=== PATIENT | female | born 1950 | race African-American/Black ===

== ENCOUNTER → 2017-02-26 | Outpatient (CLI) | payer MEDICARE, BC | END | disposition home or self-care (01) | LOC: CFH 11:44 | PROVIDERS: ATTEND Internal Medicine | DX: N20.0 Calculus of kidney (principal); N98.9 Complication associated with artificial fertilization, unspecified; E11.65 Type 2 diabetes mellitus with hyperglycemia; I10 Essential (primary) hypertension; K21.9 Gastro-esophageal reflux disease without esophagitis; J44.0 Chronic obstructive pulmonary disease with (acute) lower respiratory infection; C50.011 Malignant neoplasm of nipple and areola, right female breast; E78.1 Pure hyperglyceridemia; F41.9 Anxiety disorder, unspecified | CPT/HCPCS: 76770 ==